=== PATIENT | female | born 1970 | race Caucasian/White ===

== ENCOUNTER 2018-03-23 14:33 | Emergency (ER) | payer OTHER ==
[~2018-03-23] VITALS: Ht 157.5 cm; Wt 104.3 kg
[2018-03-23] MEDS ORDERED: NEBI5 PO (16:30)
== END 2018-03-23 16:58 | disposition home or self-care (01) ==
LOC: ER 14:33
DX: I10 Essential (primary) hypertension (principal); F17.200 Nicotine dependence, unspecified, uncomplicated; Z88.5 Allergy status to narcotic agent
CPT/HCPCS: 93005; 93010; 99283-25

== ENCOUNTER 2018-08-25 19:57 | Emergency (ER) | payer OTHER ==
[~2018-08-25] VITALS: Ht 157.5 cm; Wt 99.8 kg
[~2018-08-25 19:57] MED LIST: NEBI5 PO
[2018-08-25] MEDS ORDERED: NEBI5 PO (21:11)
[2018-08-25] MEDS ORDERED: Synthroid25 MCG PO (21:12)
[2018-08-25] MEDS ORDERED: HYDCHL12.5 PO (21:12)
== END 2018-08-25 21:47 | disposition home or self-care (01) ==
LOC: ER 19:57
DX: T23.131A Burn of first degree of multiple right fingers (nail), not including thumb, initial encounter (principal); I10 Essential (primary) hypertension; E03.0 Congenital hypothyroidism with diffuse goiter; Z79.899 Other long term (current) drug therapy; X12.XXXA Contact with other hot fluids, initial encounter
CPT/HCPCS: 16020; 90471; 90714; 99283-25

== ENCOUNTER → 2021-08-27 | Outpatient (CLI) | payer OTHER ==
[~2021-08-27] MED LIST changes: +ASPI81CH PO; +ATOR80 PO; +CLOP75 PO; +HYDCHL12.5 PO; +LISI20 PO; +METO50ER PO; +Nicoderm Cq1 EAC1 TOP; +Synthroid25 MCG PO
[2021-08-29 14:10] LABS: HPV 16 Negative (Negative); HPV 18 Negative (Negative); HPV OTHER HR TYPES Negative (Negative)
== END | disposition home or self-care (01) ==
LOC: LAB SHORT 09:20 → LAB 09:20
PROVIDERS: Obstetrics & Gynecology
DX: Z09 Encounter for follow-up examination after completed treatment for conditions other than malignant neoplasm (principal); Z87.42 Personal history of other diseases of the female genital tract
CPT/HCPCS: 87624; G0123

== ENCOUNTER → 2021-08-27 | Outpatient (CLI) | payer OTHER | END | disposition home or self-care (01) | LOC: PLD 13:40 → LAB SHORT 13:40 | DX: N93.9 Abnormal uterine and vaginal bleeding, unspecified (principal) | CPT/HCPCS: 88305 ==

== ENCOUNTER 2023-01-28 09:52 | Observation (INO) | payer OTHER ==
[~2023-01-28] VITALS: Ht 157.5 cm; Wt 110.9 kg
[~2023-01-28 09:52] MED LIST changes: -HYDCHL12.5 PO; +HYDCHL25 PO
[2023-01-28] MEDS ORDERED: PARO20 PO (10:20)
[2023-01-28 10:26] LABS: BASOPHILS ABSOLUTE AUTO 0.06 K/mm3 (0.00-0.23); BASOPHILS PERCENT AUTO 1 % (0-2); EOSINOPHILS ABSOLUTE AUTO 0.47 K/mm3 (0.00-0.68); EOSINOPHILS PERCENT AUTO 6 % (0-6); Hematocrit 49.4 % (33.0-51.0); Hemoglobin 16.9 g/dL (11.5-16.0); IMMATURE GRAN ABSOLUTE AUTO 0.01 K/mm3 (0.00-0.10); IMMATURE GRAN PERCENT AUTO 0 % (0-1); LYMPHOCYTES ABSOLUTE AUTO 1.73 K/mm3 (0.84-5.20); LYMPHOCYTES PERCENT AUTO 23 % (21-46); MONOCYTES ABSOLUTE AUTO 0.62 K/mm3 (0.16-1.47); MONOCYTES PERCENT AUTO 8 % (4-13); Mean Corpuscular HGB 31.1 pg (26.0-34.0); Mean Corpuscular HGB Conc 34.2 g/dL (31.5-36.5); Mean Corpuscular Volume 91 fL (80-100); Mean Platelet Volume 9.9 fL (9.1-12.4); NEUTROPHILS ABSOLUTE AUTO 4.53 K/mm3 (1.96-9.15); NEUTROPHILS PERCENT AUTO 61 % (41-73); Platelet Count 266 K/mm3 (150-400); RDW Coefficient Variation 13.1 % (11.7-14.2); RDW Standard Deviation 43.5 fL (35.1-46.3); Red Blood Cell Count 5.44 M/mm3 (3.80-5.20); White Blood Cell Count 7.42 K/mm3 (4.00-11.30)
[2023-01-28 10:51] LABS: Albumin, Blood 3.2 g/dL (3.4-5.0); Albumin/Globulin Ratio 0.8 (0.8-1.8); Bilirubin, Total 0.3 mg/dL (0.1-1.0); Bun/Creatinine Ratio 16.2 (12.0-20.0); Calcium, Blood 9.2 mg/dL (8.5-10.1); Creatinine, Blood 0.74 mg/dL (0.40-1.00); Globulin, Blood 3.9 g/dL (2.2-4.0); Total Protein, Blood 7.1 g/dL (6.4-8.2)
[2023-01-28 13:59] LABS: CHOL/HDL RATIO 5.7; Cholesterol 205 mg/dL (50-200); HDL Cholesterol 36 mg/dL (>39); LDL/HDL RATIO 3.5; Low Density Lipoprotein Chol 126 mg/dL (0-110); Triglycerides 216 mg/dL (30-160); Very Low Density Lipoprot Chol 43 mg/dL (6-32)
[2023-01-28] MEDS ORDERED: LEVSOD25 PO (15:13)
[2023-01-28 15:16] VITALS: BP 143/86
[2023-01-28] MEDS ORDERED: LORA10ER PO (15:57)
[2023-01-28] MEDS ORDERED: CLOBETASOL EMOL15 G1 TOP (15:57)
[2023-01-28 19:30] VITALS: BP 140/97
[2023-01-29 04:48] VITALS: BP 137/94
[2023-01-29 05:06] LABS: BASOPHILS ABSOLUTE AUTO 0.08 K/mm3 (0.00-0.23); BASOPHILS PERCENT AUTO 1 % (0-2); EOSINOPHILS PERCENT AUTO 6 % (0-6); Hematocrit 51.7 % (33.0-51.0); Hemoglobin 17.4 g/dL (11.5-16.0); IMMATURE GRAN ABSOLUTE AUTO 0.03 K/mm3 (0.00-0.10); IMMATURE GRAN PERCENT AUTO 0 % (0-1); LYMPHOCYTES ABSOLUTE AUTO 2.43 K/mm3 (0.84-5.20); LYMPHOCYTES PERCENT AUTO 28 % (21-46); MONOCYTES PERCENT AUTO 9 % (4-13); Mean Corpuscular HGB 30.5 pg (26.0-34.0); Mean Corpuscular HGB Conc 33.7 g/dL (31.5-36.5); Mean Corpuscular Volume 91 fL (80-100); NEUTROPHILS ABSOLUTE AUTO 4.94 K/mm3 (1.96-9.15); NEUTROPHILS PERCENT AUTO 56 % (41-73); Platelet Count 298 K/mm3 (150-400); RDW Coefficient Variation 13.1 % (11.7-14.2); White Blood Cell Count 8.78 K/mm3 (4.00-11.30)
[2023-01-29 06:00] LABS: Albumin, Blood 3.4 g/dL (3.4-5.0); Albumin/Globulin Ratio 0.8 (0.8-1.8); Bilirubin, Total 0.3 mg/dL (0.1-1.0); Calcium, Blood 9.1 mg/dL (8.5-10.1); Creatinine, Blood 0.67 mg/dL (0.40-1.00); Phosphorus, Blood 3.1 mg/dL (2.5-4.9); Potassium, Blood 3.9 mmol/L (3.5-5.5); Thyroid Stimulating Hormone 5.38 uIU/mL (0.360-4.800); Total Protein, Blood 7.4 g/dL (6.4-8.2)
[2023-01-29 07:39] VITALS: BP 144/92
[2023-01-29 15:40] VITALS: BP 146/97
[2023-01-29] MEDS ORDERED: METF500 PO (18:02)
[2023-01-29] MEDS ORDERED: NICO21TP TOP (18:02)
[2023-01-30 08:10] LABS: HEMOGLOBIN A1C 13.2 % (4.8-5.6)
== END 2023-01-29 18:51 | disposition home or self-care (01) ==
LOC: ER 09:52 → MEDS 09:53 → ER 14:34 → MEDS 14:53
PROVIDERS: Emergency Medicine; ADMIT Internal Medicine
DX: R07.89 Other chest pain (principal); I10 Essential (primary) hypertension; E11.9 Type 2 diabetes mellitus without complications; R06.83 Snoring; L40.9 Psoriasis, unspecified; F41.8 Other specified anxiety disorders; E03.9 Hypothyroidism, unspecified; Z86.73 Personal history of transient ischemic attack (TIA), and cerebral infarction without residual deficits; Z88.6 Allergy status to analgesic agent; Z88.8 Allergy status to other drugs, medicaments and biological substances; Z72.0 Tobacco use
CPT/HCPCS: 36415; 71046; 78452; 80053; 80061; 82947; 83036; 83735; 84100; 84443; 84484; 85025; 93005; 93010; 93017; 93306; 96372; 99285-25; A9270; A9500; G0378; J0706; J1650; J2785

== ENCOUNTER 2023-06-22 12:13 | Emergency (ER) | payer OTHER ==
[~2023-06-22] VITALS: Ht 157.5 cm; Wt 106.6 kg
[~2023-06-22 12:13] MED LIST changes: +CLOBETASOL EMOL15 G1 TOP; +LEVSOD25 PO; +LORA10ER PO; +METF500 PO; +NICO21TP TOP; +PARO20 PO
[2023-06-22 13:19] LABS: BASOPHILS ABSOLUTE AUTO 0.06 K/mm3 (0.00-0.23); BASOPHILS PERCENT AUTO 1 % (0-2); EOSINOPHILS ABSOLUTE AUTO 0.49 K/mm3 (0.00-0.68); EOSINOPHILS PERCENT AUTO 4 % (0-6); Hematocrit 47.3 % (33.0-51.0); Hemoglobin 15.5 g/dL (11.5-16.0); IMMATURE GRAN ABSOLUTE AUTO 0.02 K/mm3 (0.00-0.10); IMMATURE GRAN PERCENT AUTO 0 % (0-1); LYMPHOCYTES ABSOLUTE AUTO 2.58 K/mm3 (0.84-5.20); LYMPHOCYTES PERCENT AUTO 22 % (21-46); MONOCYTES ABSOLUTE AUTO 0.81 K/mm3 (0.16-1.47); MONOCYTES PERCENT AUTO 7 % (4-13); Mean Corpuscular HGB 30.5 pg (26.0-34.0); Mean Corpuscular HGB Conc 32.8 g/dL (31.5-36.5); Mean Corpuscular Volume 93 fL (80-100); Mean Platelet Volume 9.8 fL (9.1-12.4); NEUTROPHILS ABSOLUTE AUTO 7.96 K/mm3 (1.96-9.15); NEUTROPHILS PERCENT AUTO 67 % (41-73); Platelet Count 344 K/mm3 (150-400); RDW Coefficient Variation 13.8 % (11.7-14.2); RDW Standard Deviation 47.4 fL (35.1-46.3); Red Blood Cell Count 5.09 M/mm3 (3.80-5.20); White Blood Cell Count 11.92 K/mm3 (4.00-11.30)
[2023-06-22 13:31] LABS: Albumin, Blood 3.6 g/dL (3.4-5.0); Albumin/Globulin Ratio 0.8 (0.8-1.8); Bilirubin, Total 0.3 mg/dL (0.1-1.0); Bun/Creatinine Ratio 19.4 (12.0-20.0); Calcium, Blood 9.6 mg/dL (8.5-10.1); Creatinine, Blood 0.82 mg/dL (0.40-1.00); Globulin, Blood 4.3 g/dL (2.2-4.0); Potassium, Blood 3.8 mmol/L (3.5-5.5); Total Protein, Blood 7.9 g/dL (6.4-8.2)
[2023-06-22 17:10] VITALS: BP 138/86
== END 2023-06-22 17:11 | disposition home or self-care (01) ==
LOC: ER 12:13
PROVIDERS: Physician Assistant
DX: K43.9 Ventral hernia without obstruction or gangrene (principal); I10 Essential (primary) hypertension; E78.5 Hyperlipidemia, unspecified; E27.9 Disorder of adrenal gland, unspecified; F17.210 Nicotine dependence, cigarettes, uncomplicated; Z79.82 Long term (current) use of aspirin; Z79.899 Other long term (current) drug therapy; Z79.890 Hormone replacement therapy; Z88.5 Allergy status to narcotic agent; Z79.84 Long term (current) use of oral hypoglycemic drugs; Z86.73 Personal history of transient ischemic attack (TIA), and cerebral infarction without residual deficits
CPT/HCPCS: 74177; 80053; 85025; 96374; 99284-25; J2405; Q9967

== ENCOUNTER 2023-06-24 08:37 | Observation (INO) | payer OTHER ==
[2023-06-24] VITALS (8 sets, daily range): BP systolic 103–152; BP diastolic 75–111
[~2023-06-24] VITALS: Ht 157.5 cm; Wt 106.6 kg
[2023-06-24] MEDS ORDERED: OZEMPIC0.25 MG/02 SC (09:55)
[2023-06-24 10:25] LABS: BASOPHILS ABSOLUTE AUTO 0.05 K/mm3 (0.00-0.23); BASOPHILS PERCENT AUTO 1 % (0-2); EOSINOPHILS ABSOLUTE AUTO 0.37 K/mm3 (0.00-0.68); EOSINOPHILS PERCENT AUTO 3 % (0-6); Hematocrit 47.6 % (33.0-51.0); Hemoglobin 15.9 g/dL (11.5-16.0); IMMATURE GRAN ABSOLUTE AUTO 0.03 K/mm3 (0.00-0.10); IMMATURE GRAN PERCENT AUTO 0 % (0-1); LYMPHOCYTES ABSOLUTE AUTO 1.36 K/mm3 (0.84-5.20); LYMPHOCYTES PERCENT AUTO 13 % (21-46); MONOCYTES ABSOLUTE AUTO 0.79 K/mm3 (0.16-1.47); MONOCYTES PERCENT AUTO 7 % (4-13); Mean Corpuscular HGB 30.5 pg (26.0-34.0); Mean Corpuscular HGB Conc 33.4 g/dL (31.5-36.5); Mean Corpuscular Volume 91 fL (80-100); Mean Platelet Volume 9.5 fL (9.1-12.4); NEUTROPHILS PERCENT AUTO 76 % (41-73); Platelet Count 318 K/mm3 (150-400); RDW Coefficient Variation 13.6 % (11.7-14.2); RDW Standard Deviation 46.4 fL (35.1-46.3); Red Blood Cell Count 5.21 M/mm3 (3.80-5.20)
[2023-06-24 10:54] LABS: Albumin, Blood 3.5 g/dL (3.4-5.0); Albumin/Globulin Ratio 0.8 (0.8-1.8); Bilirubin, Total 0.4 mg/dL (0.1-1.0); Bun/Creatinine Ratio 10.3 (12.0-20.0); Calcium, Blood 9.5 mg/dL (8.5-10.1); Creatinine, Blood 0.78 mg/dL (0.40-1.00); Globulin, Blood 4.5 g/dL (2.2-4.0); Potassium, Blood 3.9 mmol/L (3.5-5.5)
[2023-06-24] MEDS ORDERED: LEVSOD75 PO (17:44)
--- NOTE | 2023-06-24 20:33 | NUR ---
PT IN PACU, ASSUMED CARE, BRENDA RN ASSISTING IN PREPING PT
[2023-06-25] VITALS (17 sets, daily range): BP systolic 105–161; BP diastolic 64–95
--- NOTE | 2023-06-25 06:28 | NUR ---
SHIFT SUMMARY PT RETURNED TO THE UNIT AT 0100 TODAY AFTER RECEIVING A ROBOTIC LAPAROSCOPIC INCARCERATED INCISIONAL HERNIA REPAIR W/MESH REPLACEMENT. PT HAS FOUR LAP SITES THAT ARE COVERED WITH WOUND GLUE AND ARE C/D/I. PT RECEIVED ANTI-NAUSEA MEDS IN PACU AND WAS NAUSEOUS WHEN SHE CAME BACK TO THE UNIT, BUT UNABLE TO MEDICATE FOR NAUSEA AT THAT TIME. PT RESTED FOR THE MAJORITY OF THE AM, BUT CALLED WHEN SHE NOTICED HER RIGHT FOREARM FEELING ODD. THIS RN FOUND THAT THE LACTATED RINGERS IVF THAT WAS INFUSING INFILTRATED INTO THE PT'S ARM. THIS RN STOPPED THE INFUSION AND REMOVED THE IV. A NEW IV WAS PLACED IN THE PT'S LEFT FOREARM. PT WAS ABLE TO GET UP OUT OF BED AND AMBULATE TO THE BATHROOM. PT WAS STEADY ON HER FEET AND AFTER GETTING BACK TO BED, THIS RN AND ROSELIA VILLARREAL APPLIED THE PT'S ABD BINDER. VITAL SIGNS HAVE BEEN STABLE, THOUGH, PT IS STILL ON 1L OF OXYGEN TO HELP WITH HER PULSE OX AT THIS TIME. NO OTHER ACUTE EVENTS OVERNIGHT. BED IS IN LOWEST POSITION, CALL LIGHT IS WITHIN REACH.
[2023-06-25] MEDS ORDERED: TOPROL XL25 MG PO (12:40)
--- NOTE | 2023-06-25 14:20 | NUR ---
DISCHARGE SUMMARY A/O X4 POD1 LAP HERNIA REPAIR. ABDOMINAL INCISION SITES X4 W/ DERMABOND C/D/I. VITAL SIGNS STABLE. REMOVED IV, CATH TIP INTACT. PATIENT BELONGINGS GATHERED, WRITTEN AND VERBAL DISCHARGE INSTRUCTIONS GIVEN, PATIENT AGREEABLE TO DISCHARGE. PATIENT WHEELED OUT TO SPOUSES VEHICLE.
== END 2023-06-25 13:24 | disposition home or self-care (01) ==
LOC: ER 08:37 → ERHOLD 08:38 → SURS 16:14
PROVIDERS: Physician Assistant; ADMIT Surgery
PROC: 0WUF4JZ Supplement Abdominal Wall with Synthetic Substitute, Percutaneous Endoscopic Approach (ICD-10-PCS; principal; 2023-06-24 20:00)
DX: K43.0 Incisional hernia with obstruction, without gangrene (principal); I10 Essential (primary) hypertension; E78.5 Hyperlipidemia, unspecified; E11.9 Type 2 diabetes mellitus without complications; E03.9 Hypothyroidism, unspecified; L40.9 Psoriasis, unspecified; Z72.0 Tobacco use; Z79.899 Other long term (current) drug therapy; Z79.4 Long term (current) use of insulin
CPT/HCPCS: 74177; 80053; 82947; 83605; 85025; 96361; 96374; 96375; 99285-25; A9270; C1781; G0378; J0690; J1100; J1170; J1650; J1885; J2250; J2371; J2405; J2704; J2765; J3010; J7030; J7120; Q9967